=== PATIENT | female | born 1980 | race Caucasian/White ===

== ENCOUNTER 2018-12-07 21:13 | Emergency (ER) | payer MEDICAID ==
[~2018-12-07] VITALS: Ht 162.6 cm; Wt 72.6 kg
[~2018-12-07 21:13] MED LIST: AMBIEN 5 MG TABL5 M1 PO; CYMBALTA30 MG PO; IMPLANON; LYRICA150 MG PO; NORCO 5-325 TA1 EACH PO; SYMBICORT160 MCG/4. INH; ZANTAC 150MG T150 MG PO
[2018-12-07] MEDS ORDERED: FLEXERIL (21:21)
[2018-12-07] MEDS ORDERED: VALIUM5 MG (21:22)
[2018-12-07 21:39] LABS: HEMATOCRIT 43.8 % (37.0-47.0); HEMOGLOBIN 14.8 gm/dL (12.0-15.0); MCH 30.5 pg (26.0-34.0); MCHC 33.9 g/dL (28.0-37.0); MCV 90.2 fL (80.0-100.0); MPV 8.9 fl. (7.2-11.1); RBC 4.86 mil/uL (4.20-5.00); RDW-CV 12.7 % (10.5-14.5); WBC 8.8 thou/uL (4.0-11.0)
[2018-12-07 21:43] LABS: URINE BILIRUBIN NEGATIVE (Negative); URINE BLOOD NEGATIVE (Negative); URINE CLARITY CLEAR; URINE COLOR YELLOW; URINE GLUCOSE-RANDOM NEGATIVE (Negative); URINE KETONES NEGATIVE (Negative); URINE LEUKOCYTES NEGATIVE (Negative); URINE NITRITE NEGATIVE (Negative); URINE PROTEIN NEGATIVE (Negative); URINE SPECIFIC GRAVITY >= 1.030 (1.005-1.030); URINE UROBILINOGEN 0.2 E.U./dl (0.2-1.0)
[2018-12-07 21:51] LABS: AMP/METHAMP Negative (Negative); BARBITURATES Negative (Negative); BENZODIAZEPINES POSITIVE (Negative); COCAINE Negative (Negative); METHADONE Negative (Negative); OPIATES Negative (Negative); PCP Negative (Negative); THC Negative (Negative)
[2018-12-07 21:53] LABS: CALCIUM 9.5 mg/dL (8.5-10.1); CREATININE 0.7 mg/dL (0.6-1.3); POTASSIUM 4.1 mmol/L (3.5-5.1)
[2018-12-07 21:58] LABS: ALBUMIN 3.9 g/dL (3.4-5.0); TOTAL BILIRUBIN 0.4 mg/dL (<0.1-1.0); TOTAL PROTEIN 7.3 g/dL (6.4-8.2)
[2018-12-07 21:59] LABS: ACETAMINOPHEN < 2 ug/mL (10-30); ALCOHOL < 10 mg/dL (<10); SALICYLATE < 2.8 mg/dL (2.8-20.0)
[2018-12-08 02:00] VITALS: BP 118/64
--- NOTE | 2018-12-08 10:31 | EKG ---
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
== END 2018-12-08 02:15 | disposition home or self-care (01) ==
LOC: M.ERS 21:13
PROVIDERS: Personal Emergency Response Attendant
DX: R45.851 Suicidal ideations (principal); G35 Multiple sclerosis; Z88.1 Allergy status to other antibiotic agents; Z88.8 Allergy status to other drugs, medicaments and biological substances; Z79.899 Other long term (current) drug therapy